=== PATIENT | female | born 1975 | race Caucasian/White ===

== ENCOUNTER 2017-06-11 15:01 | Emergency (ER) | payer SELFPAY ==
[~2017-06-11] VITALS: Ht 165.1 cm; Wt 60.0 kg
[~2017-06-11 15:01] MED LIST: ACETTAB3 PO; AMOXICILLIN500 MG PO; ANUSOL-HC25 MG RE; AUGMENTIN1 M1 OR; AUGMENTINES600 PO; AZITHROMYC200 MG/5 M PO; AZO-STANDARD95 MG PO; BACTRIM DS1 TAB PO; BENZONATATE200 MG PO; CEPHALEXIN500 MG PO; CIPRO500 MG OR; CIPROFLOXACN500 MG PO; CLEOCIN150 MG PO; DEPO-PROVER150 MG/ML IM; DOXYCYCL HYC100 MG PO; EXCEDRI1 OR; EXCEDRI2 OR; FIORICE1 PO; FIORICET PO; FLEXERIL OR; KEFLEX500 M1 PO; LEVAQUIN500 MG PO; LORTAB 10-325 M1 TAB PO; LORTAB 1010 MG PO; LORTAB 5 OR; LORTAB5 PO; MEDDOSEPAK PO; METHADONE10 M1 OR; MOTRIN600 MG OR; NAPROSYN500 MG PO; NO HOME MEDS; PENICILLN VK500 M1 OR; PERCOCET 5/325M1 TAB OR; PERCOCET 5/325M1 TAB PO; POT CHLORIDE20 ME3 OR; PRILOSEC OTC20 MG OR; PROAIR HFA IN; ROXICODONE15 MG PO; ULTRAM50 M1 PO; ULTRAM50 MG PO; ZITHROMAX500 MG PO; ZOFRAN ODT8 MG SL; ZOFRAN4 MG OR; phenergan RE
[2017-06-11 16:36] LABS: INFLUENZA A NONE DETECTED (NONE DETECT); INFLUENZA B NONE DETECTED (NONE DETECT)
[2017-06-11 16:38] LABS: HEMATOCRIT 34.5 % (37.0-47.0); HEMOGLOBIN 10.9 g/dl (12.0-16.0); IMMATURE GRANULOCYTES 0.2 % (0.0-1.0); MEAN CELL VOLUME 82.3 fL CALC (80.0-100.0); MEAN CORPUSCULAR HGB CONC 31.6 g/L CALC (32.0-36.0); NEUT# 3.49 thou/uL (2.00-7.15); RED BLOOD COUNT 4.19 mill/uL (4.20-5.60); RED CELL DISTRI WIDTH 14.2 % (11.5-15.5)
[2017-06-11 17:14] VITALS: BP 121/71
== END 2017-06-11 17:14 | disposition home or self-care (01) | DRG 866 ==
LOC: ED 15:01
PROVIDERS: Family Medicine
DX: B34.9 Viral infection, unspecified (principal); F17.210 Nicotine dependence, cigarettes, uncomplicated; R05 Cough; R09.81 Nasal congestion; M79.1 Myalgia; R06.2 Wheezing

== ENCOUNTER 2019-04-17 09:33 | Inpatient (IN) | payer SELFPAY ==
[~2019-04-17] VITALS: Ht 165.1 cm; Wt 50.0 kg
--- NOTE | 2019-04-17 09:45 | NUR ---
PATEINT TO ROOM VIA WHEELCHAIR AND PHYSICIAN NOTIFIED OF PATIENT STATUS
--- NOTE | 2019-04-17 09:50 | NUR ---
PT REPORTS JOINT SWELLING, FEVER, BODY ACHES, HEADACHES AND NAUSEA FOR THE PAST 4 DAYS. PT IS AN IV DRUG USER AND LAST USED DILAUDID 2 DAYS PRIOR TO RIGHT HAND. RECTAL TEMP COMPLETED AND IS 101.0. IV INITIATED AND LABS COLLECTED. MD AT BEDSIDE.
--- NOTE | 2019-04-17 10:00 | NUR ---
PT REPORT TO GUSTAVO QUEVEDO.
[2019-04-17 10:14] LABS: HEMATOCRIT 31.9 % (37.0-47.0); HEMOGLOBIN 10.6 g/dl (12.0-16.0); IMMATURE GRANULOCYTES 0.5 % (0.0-5.0); MEAN CELL VOLUME 83.3 fL CALC (80.0-100.0); MEAN CORPUSCULAR HGB 27.7 pG CALC (26.0-32.0); MEAN CORPUSCULAR HGB CONC 33.2 g/L CALC (32.0-36.0); NEUT# 5.53 thou/uL (2.00-7.15); RED BLOOD COUNT 3.83 mill/uL (4.20-5.60); RED CELL DISTRI WIDTH 14.1 % (11.5-15.5)
[2019-04-17 10:16] LABS: GFR > 60 ML/MIN (>=60 (CALC)); GFR FOR AFR.AMER. > 60 ML/MIN (>=60 (CALC))
[2019-04-17 10:32] LABS: ALBUMIN 2.8 g/dL (3.2-5.0); BILIRUBIN, TOTAL 0.7 mg/dL (0.0-1.4); BUN 16 mg/dL (7-17); BUN/CREATININE RATIO 26 (12-20 (CALC)); CHLORIDE 93 mmol/l (95-108); CREATININE 0.6 mg/dL (0.5-1.0); GFR > 60 ML/MIN (>=60 (CALC)); GFR FOR AFR.AMER. > 60 ML/MIN (>=60 (CALC)); LIPASE 16 u/l (23-300); POTASSIUM 3.4 mmol/l (3.5-5.1); SGOT/AST 40 u/l (14-36)
[2019-04-17 10:36] LABS: ANION GAP 10 (6-22 (CALC))
[2019-04-17 10:37] LABS: ALKALINE PHOSPHATASE 76 u/l (38-126); CARBON DIOXIDE 24 mmol/l (22-30); SODIUM 124 mmol/l (137-146)
--- NOTE | 2019-04-17 11:00 | NUR ---
PT STATES PAIN AND NAUSEA HAS DECREASED. AMBULATED TO RESTROOM WITH STEADY GAIT
[2019-04-17 11:21] LABS: URINE BILIRUBIN - DIPSTICK NEGATIVE (NEGATIVE); URINE BLOOD DIPSTICK MODERATE (NEGATIVE); URINE COLOR YELLOW; URINE GLUCOSE - DIPSTICK NEGATIVE (NEGATIVE); URINE KETONE NEGATIVE (NEGATIVE); URINE LEUK ESTERASE NEGATIVE (NEGATIVE); URINE NITRITE - DIPSTICK NEGATIVE (Negative); URINE PH 6.5 (4.5-8.0); URINE PROTEIN - DIPSTICK NEGATIVE (NEG-TRACE); URINE SPECIFIC GRAVITY <=1.005; URINE UROBILINOGEN - DIPSTICK 0.2 E.U./dL (0.2)
[2019-04-17 11:25] LABS: URINE RBC 0-2 RBC/hpf (0-5)
--- NOTE | 2019-04-17 12:00 | NUR ---
PT RESTING ON STRETCHER, IV PATENT WITH FLUIDS RUNNING
--- NOTE | 2019-04-17 14:52 | NUR ---
INFECTION CONTROL DR PEDERSON AT BEDSIDE
[2019-04-17 15:49] LABS: BARBITURATES NEGATIVE (NEGATIVE); COCAINE NEGATIVE (NEGATIVE); METHADONE NEGATIVE (NEGATIVE); TETRAHYDROCANNABIONOL NEGATIVE (NEGATIVE); TRICYLIC ANTIDEPRESSANTS NEGATIVE (NEGATIVE)
[2019-04-17 15:50] LABS: OXCYCODONE POSITIVE (NEGATIVE)
--- NOTE | 2019-04-17 15:59 | NUR ---
REPROT CALLED TO ICU - ALBERT CHEN ACCEPTED PT
--- NOTE | 2019-04-17 16:04 | NUR ---
Vancomycin consult Age: 43 yo Serum creatinine: 0.7 mg/dL Height: 65.0 Inches Weight (kg): 50 IBW (kg): 57.00 Dosing wt(kg): 50 Estimated Creatinine clearance (ml/min): 80.1 Vd (liters): 35.0 (factor used: 0.7 L/kg) Henry (hr-1): 0.071 Half life (hrs): 9.76 Vancomycin 750 mg q 12 hrs starting at 2000 with an expected Cpeak of 35 mcg/ml and an expected Ctrough of 17 mcg/ml. Trough on 04/19/19 at 0730.
--- NOTE | 2019-04-17 16:15 | NUR ---
Admission Note Report Given to: ALBERT RN Transported by: Wheelchair X Stretcher Transported with: X Nurse Transporter X Patent IV O2 X Supervisor [employer] Location: X ICU MS2 TRANSPORTED TO ICU WITH OUT INCIDENT
[2019-04-17 16:30] VITALS: BP 102/71
[2019-04-17 17:00] VITALS: BP 96/65
[2019-04-17 17:30] VITALS: BP 112/71
[2019-04-17 18:00] VITALS: BP 115/68
--- NOTE | 2019-04-17 18:30 | NUR ---
PT PROVIDED TYLENOL AND TRAMADOL FOR RELIEF OF HEADACHE PAIN AND FEVER OF 100.4. PT UP TO BSC WITHOUT DIFFICULTY. MEAL TRAY ARRIVES, PT HUNGRY. NO DISTRESS. DROPLET PRECAUTIONS ENFORCED.
[2019-04-17 19:30] VITALS: BP 90/50
--- NOTE | 2019-04-17 19:30 | NUR ---
eyes closed. does not open them. nad. indifferent to staff. cardiac cath lab manager shows sinus tach. #18 lac ns infusing @ 100cchr. refused po intake. voids per bsc. fall, droplet & contact precautions cont.
[2019-04-17 22:00] VITALS: BP 106/72
--- NOTE | 2019-04-17 22:50 | NUR ---
c/o "bones hurting & h/a." medicated as ordered
--- NOTE | 2019-04-17 23:50 | NUR ---
c/o "bones hurting & h/a." medicated as ordered.
[2019-04-18] VITALS (15 sets, daily range): BP systolic 90–117; BP diastolic 40–80
--- NOTE | 2019-04-18 02:00 | NUR ---
eyes closed. no distress. cardiac rehabilitation program director shows sinus rhythm hr 90
--- NOTE | 2019-04-18 03:50 | NUR ---
c/o "bones hurting & h/a." medicated as ordered.
--- NOTE | 2019-04-18 05:40 | NUR ---
lab here. blood drawn.
[2019-04-18 06:07] LABS: HEMATOCRIT 29.2 % (37.0-47.0); HEMOGLOBIN 9.7 g/dl (12.0-16.0); IMMATURE GRANULOCYTES 0.6 % (0.0-5.0); MEAN CELL VOLUME 83.9 fL CALC (80.0-100.0); MEAN CORPUSCULAR HGB 27.9 pG CALC (26.0-32.0); MEAN CORPUSCULAR HGB CONC 33.2 g/L CALC (32.0-36.0); NEUT# 5.36 thou/uL (2.00-7.15); RED BLOOD COUNT 3.48 mill/uL (4.20-5.60); RED CELL DISTRI WIDTH 14.3 % (11.5-15.5)
[2019-04-18 06:36] LABS: ALBUMIN 2.4 g/dL (3.2-5.0); ALKALINE PHOSPHATASE 60 u/l (38-126); BUN 13 mg/dL (7-17); BUN/CREATININE RATIO 28 (12-20 (CALC)); CARBON DIOXIDE 23 mmol/l (22-30); CREATININE 0.5 mg/dL (0.5-1.0); GFR > 60 ML/MIN (>=60 (CALC)); GFR FOR AFR.AMER. > 60 ML/MIN (>=60 (CALC)); POTASSIUM 3.6 mmol/l (3.5-5.1); SGOT/AST 24 u/l (14-36); TOTAL PROTEIN 5.3 g/dL (6.3-8.2)
[2019-04-18 06:45] LABS: ANION GAP 9 (6-22 (CALC)); BILIRUBIN, TOTAL 0.4 mg/dL (0.0-1.4); CHLORIDE 106 mmol/l (95-108); SODIUM 134 mmol/l (137-146)
--- NOTE | 2019-04-18 08:01 | NUR ---
REPORT RECEIVED FROM SCREW MACHINE ADJUSTER AUTOMATIC RN. PT ASSESSMENT COMPLETED. PT RECEIVED PRN MEDICATION FOR PAIN. EDUCATED PT ON FALL RISK STATUS, CALL LIGHT, AND DROPLET STATUS. WILL CONTINUE TO MONITOR. PLEASE SEE FLOW SHEET FOR FURTHER DETAILS.
--- NOTE | 2019-04-18 10:12 | NUR ---
NO DISTRESS NOTED. PT RECEIVED PRN MEDICATIONS FOR PAIN. WILL CONTINUE TO MONITOR. PLEASE SEE FLOW SHEET FOR FURTHER DETAILS.
--- NOTE | 2019-04-18 12:30 | NUR ---
DR. VERAS AT BEDSIDE TO ASSESS PT. PT COMPLAINED OF HEADACHE. DR. VERAS NOTIFIED. EXCEDRIN TO BE ORDERED. NO DISTRESS NOTED. WILL CONTINUE TO MONITOR.
--- NOTE | 2019-04-18 14:19 | NUR ---
PT RECEIVED PAIN MEDICATION FOR BACK PAIN. PT SLEEPING. NO DISTRESS NOTED. WILL CONTINUE TO MONITOR.
--- NOTE | 2019-04-18 15:56 | NUR ---
PT STATING PAIN IS GETTING WORSE AND SHE WOULD LIKE MORPHINE. CALLED AND NOTIFIED. PER NOT TO GIVE MORPHINE. NO NEW ORDERS RECEIVED. PT NOTIFIED. TYLENOL, HEAT PACKS AND WARM BLANKET GIVEN FOR PAIN. WILL CONTINUE TO MONITOR.
--- NOTE | 2019-04-18 17:16 | NUR ---
PT STATED HER IV HURTS. NO REDNESS OR INFILTRATION SEEN. ATTEMPTED NEW IV ACCESS X2 UNSUCCESSFULLY. PT REFUSED IV FLUIDS. WILL CONTINUE TO MONITOR.
--- NOTE | 2019-04-18 18:34 | NUR ---
PT NEURO ASSESSMENT STABLE THROUGHOUT SHIFT. AFEBRILE. ST-SR. PT ON ROOM AIR. PT AMBULATED TO THE BEDSIDE COMMODE. 1 BM THIS SHIFT. PT ON MENSES. PT RECEIVED PRN MEDICATIONS FOR PAIN. PT REFUSED IV FLUIDS. REPORT TO BE GIVEN TO HOME THEATER SPECIALIST NURSE. PLEASE SEE FLOW SHEET FOR FURTHER DETAILS \.
--- NOTE | 2019-04-18 19:30 | NUR ---
eyes closed. no distress. awakens easily. no c/o pain voiced. bargeman shows sinus rhythm hr 90. #18 lac saline lock. po fluids taken well. voids per bsc. menses cont. contact precautions cont.
--- NOTE | 2019-04-18 20:10 | NUR ---
to medsurg in accompanied by toy [employer] former supervisor for shower.
--- NOTE | 2019-04-18 20:45 | NUR ---
returned ro room. iv restarted per supervisor wet room. [facility] site d/c'd.
--- NOTE | 2019-04-18 21:00 | NUR ---
c/o pain. medicated as ordered.
--- NOTE | 2019-04-18 22:00 | NUR ---
eyes closed. no distress.
[2019-04-19] VITALS (8 sets, daily range): BP systolic 103–135; BP diastolic 50–78
--- NOTE | 2019-04-19 00:10 | NUR ---
up to bsc. nguyễn well. c/o pain. medicated as ordered.
--- NOTE | 2019-04-19 01:50 | NUR ---
c/o pain. medicated as ordered.
--- NOTE | 2019-04-19 04:00 | NUR ---
eyes closed. no distress. therapeutic strategy lead shows sinus tach hr 101.
--- NOTE | 2019-04-19 05:40 | NUR ---
c/o pain. medicated as ordered.
--- NOTE | 2019-04-19 08:14 | NUR ---
Vancomycin consult Weight: 50 Kilograms Current dose being given: 750 mg Current dosing interval: 12 hrs Current infusion time (hrs): 2 Trough level obtained: 7 mcg/ml Timing of trough - # of hrs before next dose: 0.5 Hrs New rate constant (olvin): 0.122 hr-1 Half-life: 5.68 Hours Vd from levels: 35.00 Liters (0.7 L/kg) CLvanco= 4.270 L/hr Vancomycin 1000 mg q 8 hrs starting at 1600 today. Infuse over 2 hrs Expected Cpeak: 40 mcg/mL Expected Ctrough: 19 mcg/mL Next trough on 04/20/19 at 1530
--- NOTE | 2019-04-19 08:41 | NUR ---
REPORT RECEIVED FROM CANCELLATION CLERK NURSE. PT ASSESSMENT COMPLETE. NO RESPIRATORY DISTRESS NOTED. PT SR-ST. PT RECEIVED PAIN MEDICATIN FOR PAIN. PT EDUCATED ON FALL RISK STATUS AND CALL LIGHT. PLEASE SEE FLOW SHEET FOR FURTHER DETAILS. WILL CONTINUE TO MONITOR.
--- NOTE | 2019-04-19 10:44 | NUR ---
PT RESTING WITH EYES CLOSED. PT RECEIEVED PRN PAIN MEDICAIONS FOR PAIN. PT GIVEN ICE CHIPS FOR PAIN. PT VOIDING VIA BEDSIDE COMMODE. WILL CONTINUE TO MONITOR.
--- NOTE | 2019-04-19 12:45 | NUR ---
PT GIVEN TYLENOL FOR HEADACHE. PT UP TO COMMODE. SMALL BM. PT UP IN BED EATING LUNCH. NO DISTRESS NOTED. WILL CONTINUE TO MONITOR.
--- NOTE | 2019-04-19 14:45 | NUR ---
PT RESTING WITH EYES CLOSED. NO DISTRESS NOTED. WILL CONTINUE TO MONITOR.
--- NOTE | 2019-04-19 16:45 | NUR ---
PT UP IN BED EATING DINNER. NO DISTRESS NOTED. PT RECEIVED PRN MEDECATIONS FOR PAIN. WILL CONTINUE TO MONITOR.
--- NOTE | 2019-04-19 19:05 | NUR ---
REPORT GIVEN TO NIGHT NURSE. PT RESTING IN BED WITH EYES CLOSED. SR-ST. ON ROOM AIR. 1 BM THIS SHIFT. PRN MEDICATIONS FOR PAIN. AFEBRILE. PLEASE SEE FLOW SHEET FOR FURTHER DETAILS.
--- NOTE | 2019-04-19 19:30 | NUR ---
awakens easily then immediately c/o pain. medicated as ordered. pt denies drug withdrawal. log buncher shows sinus tach hr 104. #22 rt wrist ns infusing @ 100cchr. po fluid taken well. voids per bsc. menses cont. contact & fall precautions cont.
--- NOTE | 2019-04-19 20:00 | NUR ---
pt refuses to kep bp cuff on.
--- NOTE | 2019-04-19 21:40 | NUR ---
c/o pain. medicated as ordered. c/o insomnia although pt sleeps often.
--- NOTE | 2019-04-19 22:00 | NUR ---
refuses to keep bp cuff on.
[2019-04-20] VITALS (7 sets, daily range): BP systolic 116–139; BP diastolic 68–102
--- NOTE | 2019-04-20 00:01 | NUR ---
eyes closed. no distress. manager monitoring shows sinus rhythm hr 82.
--- NOTE | 2019-04-20 02:00 | NUR ---
resting quietly. resps even & unlabored. no apparent distress.
--- NOTE | 2019-04-20 03:00 | NUR ---
up to [facility] freq. cardiac catheterization technologist off.
--- NOTE | 2019-04-20 05:00 | NUR ---
c/o pain. medicated as ordered. lab here. blood drawn. monitor car operator replaced.
[2019-04-20 05:24] LABS: HEMATOCRIT 30.9 % (37.0-47.0); HEMOGLOBIN 10.3 g/dl (12.0-16.0); IMMATURE GRANULOCYTES 1.5 % (0.0-5.0); MEAN CELL VOLUME 82.2 fL CALC (80.0-100.0); MEAN CORPUSCULAR HGB 27.4 pG CALC (26.0-32.0); MEAN CORPUSCULAR HGB CONC 33.3 g/L CALC (32.0-36.0); NEUT# 6.9 thou/uL (2.00-7.15); RED BLOOD COUNT 3.76 mill/uL (4.20-5.60); RED CELL DISTRI WIDTH 14.4 % (11.5-15.5)
[2019-04-20 05:58] LABS: ALBUMIN 2.2 g/dL (3.2-5.0); ALKALINE PHOSPHATASE 63 u/l (38-126); ANION GAP 8 (6-22 (CALC)); BILIRUBIN, TOTAL 0.5 mg/dL (0.0-1.4); BUN 8 mg/dL (7-17); BUN/CREATININE RATIO 15 (12-20 (CALC)); CARBON DIOXIDE 24 mmol/l (22-30); CHLORIDE 102 mmol/l (95-108); CREATININE 0.5 mg/dL (0.5-1.0); GFR > 60 ML/MIN (>=60 (CALC)); GFR FOR AFR.AMER. > 60 ML/MIN (>=60 (CALC)); POTASSIUM 3.1 mmol/l (3.5-5.1); SGOT/AST 17 u/l (14-36); SODIUM 132 mmol/l (137-146); TOTAL PROTEIN 5.2 g/dL (6.3-8.2)
--- NOTE | 2019-04-20 06:45 | NUR ---
RECIEVED REPORT FROM ANAHI WATSON. ASSUMED PT CARE.
--- NOTE | 2019-04-20 07:30 | NUR ---
PT RESTING IN BED, PT GOWN AND TELEMETRY ON THE FLOOR. PT STATED SHE WAS HOT. PT THEN STATED HER BONES HURT AND SHE HAS HEARING LOSS. PT PORFIRIO NEWMAN, SOB AT THIS TIME. PT REQUESTING PAIN MED, PT WAS MEDICATED AT 5AM. PT A&OX4, ABLE TO MAKE NEEDS KNOWN. RESPIRATIONS EVEN/UNLABORED, LS CLEAR. ABDOMEN SOFT, NON-TENDER. BSX4 ACTIVE, LBM 04-19-2019. PT CONTNIUES ON HER MENSES, PADS AND BRIEFS PROVIDED. CALL LIGHT IN REACH. WILL MONITOR.
--- NOTE | 2019-04-20 08:00 | NUR ---
DR. LOBO AT BEDSIDE FOR ASSESSMENT AND TO DISCUSS PLAN OF CARE. NEW ORDERS RECIEVED.
--- NOTE | 2019-04-20 08:32 | NUR ---
CALL PLACED TO [facility], SPOKE WITH GUSTAVO WARD TO INITIATE TRANSFER FOR [facility] PROCEDURE. FACE SHEET FAXED. [phone].
--- NOTE | 2019-04-20 08:45 | NUR ---
US HERE FOR ECHO AT BEDSIDE.
--- NOTE | 2019-04-20 10:00 | NUR ---
PT RESTING IN BED, CONTINUES WITH GOWN OFF. OFFERS NO COMPLAINTS AT THIS TIME. ED AT [facility] NOTIFIED, PT HAS BEEN ACCEPTED BY AT [facility], PENDING ROOM ASSIGNMENT.
--- NOTE | 2019-04-20 10:46 | NUR ---
called [facility] for the transfer center for an update. spoke to hernando and was given the accepting doctor divine. was told that she is only waiting on a bed assignment and she will call as soon as that comes available.
--- NOTE | 2019-04-20 11:11 | NUR ---
ABDIEL SHEEHAN ATTEMPTED TO GO SEE PT, PT RESTING IN BED WITH EYES CLOSED. CALL LIGHT IN REACH.
--- NOTE | 2019-04-20 11:15 | NUR ---
PT FOUND WITH IV TUBING ON THE FLOOR DRAINING THE CONTENTS OF NS TO FLOOR. PT STATED SHE DIDN'T KNOW HOW THAT HAPPENED. ATTEMPTED TO FLUSH THE SITE TO RH, UNABLE. NO S/S OF INFILTRATION OR INFECTION AT THIS TIME, LINE PULLED CATHETER INTACT.SHE CONTINUES TO REPORT [place] IN BOTH EARS, DR. LOBO AWARE. NEW IV STARTED T0 RAC.
--- NOTE | 2019-04-20 12:00 | NUR ---
PT RESTING IN BED, EYES CLOSED.
--- NOTE | 2019-04-20 13:30 | NUR ---
PT HAD FAMILY TO VISIT, THEN THE FAMILY DECIDED IT WAS TO EMOTIONAL AT THIS TIME AND WOULD COME BACK AT ANOTHER TIME
--- NOTE | 2019-04-20 14:00 | NUR ---
CALLED [facility], NO PRIVATE ROOM AVAILABLE YET. TRANSFER STILL PENDING.
--- NOTE | 2019-04-20 14:30 | NUR ---
PT MEDICATED ORDERED FOR PAIN AND TEMP ORDERED.
--- NOTE | 2019-04-20 16:00 | NUR ---
PT FAMILY ARRIVED AT BEDSIDE, ASKED IF PT COULD HAVE BC HEADACHE POWDER, TOLD NO. PT UNABLE TO HAVE AN OUTSIDE MEDICATIONS. PT MEDICATED AT 1420 FOR PAIN AND FEVER. CALL LIGHT IN REACH. WILL MONITOR.
--- NOTE | 2019-04-20 17:24 | NUR ---
DIETARY ON UNIT, DINNER BREE SET UP. CALL LIGHT IN REACH. WILL MONITOR.
--- NOTE | 2019-04-20 18:37 | NUR ---
[facility] CALLED, SPOKE WITH ED. PT WAS ASSIGNED TO [facility] ROOM 808. PT UPDATED ON TRANSFER.
--- NOTE | 2019-04-20 19:05 | NUR ---
[facility] CALLED TO NOTIFY OF TRANSFER FOR PATIENT. SPOKE TO ALEXANDRA. TIMING IS ABOUT 30 MINUTES OR SO PER REPORT.
--- NOTE | 2019-04-20 19:24 | NUR ---
MICH CHEN FROM ER CALLED AND REPORTED TO SEND [facility] TRANSPORT TO ER WHEN THEY GET HERE DUE TO A PATIENT NEEDS TO BE TRANSFERRED TO [facility].
--- NOTE | 2019-04-20 19:41 | NUR ---
PATIENT ALERT AND ORIENTED X4. ON ROOM AIR, NO SOB NOTED. TEMP 100.5. PT KNOWS SHE WILL BE TRANSFERRING TO [facility]. WROTE EVERYTHING DOWN SINCE SHE REPORTED SHE CANNOT HEAR EVEN IF I SPEAK TO HER EAR, I NOTED SHE CAN'T HEAR. PT AGREES ON POC. RAC 20 IV INTACT, NS AT 100ML/HR INFUSING. SR-ST ON TELEMETRY IN THE LOW 100'S. USES BSC WITHOUT DIFFICULTY. PUTS HER GLASSES ON TO READ THE NOTES WRITTEN. HEAD TO TOE NURSING ASSESSMENT PERFORMED. NO EDEMA, LS CLEAR, SKIN ONLY HAS SCATTERED BRUISING, BS ACTIVE AND SOFT. FOLLOWS ALL COMMANDS. SELF REPOSITIONS, CALL LIGHT WITHIN REACH.
--- NOTE | 2019-04-20 20:18 | NUR ---
PT REQUESTED PAIN MED FOR "HEAD AND KNEE PAIN", LORTAB GIVEN. SHE HAD REQUESTED A GATORADE, NOW REQUESTS ANOTHER ONE, PROVIDED WELL.
--- NOTE | 2019-04-20 20:29 | NUR ---
Discharge instructions given. Patient verbalizes understanding of same. Discharged in stable condition via Stretcher to *Other with staff. All belongings sent with pt. ALL BELONGINGS TAKEN WITH PATIENT. WALKED TO [facility] TO TAKE HER.
--- NOTE | 2019-04-20 20:39 | NUR ---
REPORT CALLED TO PRICILA AT [facility] CY 808, SBAR GIVEN.
== END 2019-04-20 20:29 | disposition short-term general hospital (02) | DRG 75 ==
LOC: ED 09:33 → ED-I 13:33 → ED 13:48 → ICU 13:49
PROVIDERS: Family Medicine; Internal Medicine Infectious Disease; Nurse Practitioner Family; ADMIT Internal Medicine; ATTEND Internal Medicine
PROC: 009U3ZX Drainage of Spinal Canal, Percutaneous Approach, Diagnostic (ICD-10-PCS; principal; 2019-04-17)
DX: A87.9 Viral meningitis, unspecified (principal); R78.81 Bacteremia; E87.1 Hypo-osmolality and hyponatremia; R01.1 Cardiac murmur, unspecified; F11.10 Opioid abuse, uncomplicated; F15.10 Other stimulant abuse, uncomplicated; R16.2 Hepatomegaly with splenomegaly, not elsewhere classified; F17.200 Nicotine dependence, unspecified, uncomplicated; D63.8 Anemia in other chronic diseases classified elsewhere; B95.62 Methicillin resistant Staphylococcus aureus infection as the cause of diseases classified elsewhere; Z77.21 Contact with and (suspected) exposure to potentially hazardous body fluids
CPT/HCPCS: J0133; J3370; Q3014; Q9967

== ENCOUNTER 2019-05-13 18:45 | Inpatient (IN) | payer SELFPAY ==
[~2019-05-13] VITALS: Ht 165.1 cm; Wt 58.1 kg
[2019-05-13 18:40] VITALS: BP 138/76
[2019-05-14 00:05] VITALS: BP 94/55
[2019-05-14 04:17] VITALS: BP 94/55
[2019-05-14 05:47] LABS: HEMATOCRIT 33.1 % (37.0-47.0); HEMOGLOBIN 10.4 g/dl (12.0-16.0); IMMATURE GRANULOCYTES 0.9 % (0.0-5.0); MEAN CORPUSCULAR HGB 27.7 pG CALC (26.0-32.0); MEAN CORPUSCULAR HGB CONC 31.4 g/L CALC (32.0-36.0); NEUT# 2.74 thou/uL (2.00-7.15); RED BLOOD COUNT 3.75 mill/uL (4.20-5.60); RED CELL DISTRI WIDTH 15.1 % (11.5-15.5)
[2019-05-14 05:48] LABS: MEAN CELL VOLUME 88.3 fL CALC (80.0-100.0)
[2019-05-14 06:11] LABS: ALKALINE PHOSPHATASE 34 u/l (38-126); BILIRUBIN, TOTAL 0.3 mg/dL (0.0-1.4); BUN 20 mg/dL (7-17); BUN/CREATININE RATIO 34 (12-20 (CALC)); CARBON DIOXIDE 25 mmol/l (22-30); CHLORIDE 104 mmol/l (95-108); CREATININE 0.6 mg/dL (0.5-1.0); GFR > 60 ML/MIN (>=60 (CALC)); GFR FOR AFR.AMER. > 60 ML/MIN (>=60 (CALC)); SODIUM 136 mmol/l (137-146)
[2019-05-14 06:22] LABS: ALBUMIN 3.3 g/dL (3.2-5.0); ANION GAP 12 (6-22 (CALC)); POTASSIUM 4.7 mmol/l (3.5-5.1); SGOT/AST 104 u/l (14-36); TOTAL PROTEIN 6.6 g/dL (6.3-8.2)
[2019-05-14 07:51] VITALS: BP 116/70
[2019-05-14] MEDS ORDERED: BUPRENORPHIN2 MG SL (12:29)
[2019-05-14] MEDS ORDERED: [UNRECOGNIZED DRUG - OTHER] PO (12:30)
[2019-05-14] MEDS ORDERED: TEFLARO600 MG IV (12:31)
[2019-05-14] MEDS ORDERED: DEXAMETHASON4 MG PO (12:32)
[2019-05-14] MEDS ORDERED: CUBICIN500 MG IV (12:32)
[2019-05-14] MEDS ORDERED: VISTARIL 50MG C50 MG PO (12:33)
[2019-05-14] MEDS ORDERED: MECLIZINE HCL25 MG PO (12:34)
[2019-05-14] MEDS ORDERED: MELATONIN3 MG PO (12:35)
[2019-05-14] MEDS ORDERED: ONDANSETRON HCL4 MG PO (12:36)
[2019-05-14] MEDS ORDERED: [UNRECOGNIZED DRUG - OTHER] PO (12:37)
[2019-05-14] MEDS ORDERED: TIMOLOL MAL0.5 % OU (12:38)
[2019-05-14 15:10] VITALS: BP 140/80
[2019-05-14 19:54] VITALS: BP 138/78
[2019-05-15 04:32] VITALS: BP 97/48
[2019-05-15 08:00] VITALS: BP 118/71
[2019-05-15 15:28] VITALS: BP 115/73
[2019-05-15 18:27] VITALS: BP 121/75
[2019-05-16 04:14] VITALS: BP 119/76
[2019-05-16 08:00] VITALS: BP 113/74
[2019-05-16 15:25] VITALS: BP 126/75
[2019-05-16 18:10] VITALS: BP 126/76
[2019-05-17 03:28] VITALS: BP 114/72
[2019-05-17 07:43] VITALS: BP 118/75
[2019-05-17 15:11] VITALS: BP 127/79
[2019-05-17 18:43] VITALS: BP 112/71
[2019-05-18 04:33] VITALS: BP 121/81
[2019-05-18 08:00] VITALS: BP 114/75
[2019-05-18 14:44] VITALS: BP 133/73
[2019-05-18 19:01] VITALS: BP 135/90
[2019-05-19 04:50] VITALS: BP 119/67
[2019-05-19 05:28] LABS: HEMOGLOBIN 10.5 g/dl (12.0-16.0); MEAN CELL VOLUME 88.2 fL CALC (80.0-100.0); MEAN CORPUSCULAR HGB 28.1 pG CALC (26.0-32.0); MEAN CORPUSCULAR HGB CONC 31.8 g/L CALC (32.0-36.0); NEUT# 3.99 thou/uL (2.00-7.15); RED BLOOD COUNT 3.74 mill/uL (4.20-5.60); RED CELL DISTRI WIDTH 15.2 % (11.5-15.5)
[2019-05-19 05:48] LABS: ANION GAP 10 (6-22 (CALC)); BUN 21 mg/dL (7-17); BUN/CREATININE RATIO 37 (12-20 (CALC)); CARBON DIOXIDE 27 mmol/l (22-30); CHLORIDE 104 mmol/l (95-108); CREATININE 0.6 mg/dL (0.5-1.0); GFR > 60 ML/MIN (>=60 (CALC)); GFR FOR AFR.AMER. > 60 ML/MIN (>=60 (CALC)); POTASSIUM 4.8 mmol/l (3.5-5.1); SODIUM 136 mmol/l (137-146)
[2019-05-19 05:55] LABS: ALBUMIN 3.7 g/dL (3.2-5.0); ALKALINE PHOSPHATASE 38 u/l (38-126); BILIRUBIN, TOTAL 0.2 mg/dL (0.0-1.4); C-REACTIVE PROTEIN < 0.5 mg/dL (0-0.9); TOTAL PROTEIN 7.2 g/dL (6.3-8.2)
[2019-05-19 06:07] LABS: CPK < 20 u/l (30-165); SGOT/AST 18 u/l (14-36)
[2019-05-19 08:00] VITALS: BP 117/69
[2019-05-19 16:11] VITALS: BP 132/77
[2019-05-19 19:46] VITALS: BP 130/71
[2019-05-20 04:00] VITALS: BP 106/67
[2019-05-20 07:30] VITALS: BP 119/74
[2019-05-20 15:05] VITALS: BP 115/71
[2019-05-20 18:29] VITALS: BP 118/63
[2019-05-21 03:53] VITALS: BP 129/69
[2019-05-21 07:34] VITALS: BP 120/71
[2019-05-21] MEDS ORDERED: DEXAMETHASON4 MG PO (10:48)
[2019-05-21] MEDS ORDERED: CUBICIN500 MG IV (10:48)
[2019-05-21] MEDS ORDERED: FIORICET PO (13:19)
[2019-05-21] MEDS ORDERED: MECLIZINE HCL25 MG PO (13:19)
[2019-05-21] MEDS ORDERED: BUPRENORPHIN2 MG SL (13:19)
== END 2019-05-21 13:36 | disposition home or self-care (01) | DRG 288 ==
LOC: MS2 18:45
PROVIDERS: Internal Medicine; Internal Medicine Infectious Disease; ADMIT Internal Medicine; ATTEND Internal Medicine
DX: I33.0 Acute and subacute infective endocarditis (principal); G03.9 Meningitis, unspecified; F17.200 Nicotine dependence, unspecified, uncomplicated; G43.909 Migraine, unspecified, not intractable, without status migrainosus; B95.62 Methicillin resistant Staphylococcus aureus infection as the cause of diseases classified elsewhere; H91.90 Unspecified hearing loss, unspecified ear; H40.10X0 Unspecified open-angle glaucoma, stage unspecified; R16.2 Hepatomegaly with splenomegaly, not elsewhere classified; H83.09 Labyrinthitis, unspecified ear; F15.10 Other stimulant abuse, uncomplicated; T36.8X5A Adverse effect of other systemic antibiotics, initial encounter
CPT/HCPCS: J0878

== ENCOUNTER 2020-07-11 | Emergency (ER) | payer OTHER ==
[~2020-07-11] MED LIST changes: +BUPRENORPHIN2 MG SL; +CUBICIN500 MG IV; +DEXAMETHASON4 MG PO; +MECLIZINE HCL25 MG PO; +MELATONIN3 MG PO; +ONDANSETRON HCL4 MG PO; +TEFLARO600 MG IV; +TIMOLOL MAL0.5 % OU; +VISTARIL 50MG C50 MG PO; +[UNRECOGNIZED DRUG - OTHER] PO; +[UNRECOGNIZED DRUG - OTHER] PO
[2020-07-11 14:00] LABS: URINE BILIRUBIN - DIPSTICK NEGATIVE (NEGATIVE); URINE BLOOD DIPSTICK NEGATIVE (NEGATIVE); URINE COLOR YELLOW; URINE GLUCOSE - DIPSTICK NEGATIVE (NEGATIVE); URINE KETONE 40 mg/dL (NEGATIVE); URINE LEUK ESTERASE NEGATIVE (NEGATIVE); URINE PH 5.5 (4.5-8.0); URINE PROTEIN - DIPSTICK 100 mg/dL (NEG-TRACE); URINE SPECIFIC GRAVITY >=1.030; URINE UROBILINOGEN - DIPSTICK 0.2 E.U./dL (0.2)
[2020-07-11 14:01] LABS: URINE NITRITE - DIPSTICK NEGATIVE (Negative)
[2020-07-11 14:02] LABS: HCG SERUM/URINE (NEG/POS) NEGATIVE (NEGATIVE)
[2020-07-11 14:08] LABS: URINE SQUAMOUS EPITHELIAL CELL FEW EPI/hpf (0-FEW)
[2020-07-11 14:32] LABS: IMMATURE GRANULOCYTES 0.4 % (0.0-5.0); MEAN CELL VOLUME 88.8 fL CALC (80.0-100.0); MEAN CORPUSCULAR HGB 27.9 pG CALC (26.0-32.0); MEAN CORPUSCULAR HGB CONC 31.4 g/dL CAL (32.0-36.0); NEUT# 7.41 thou/uL (2.00-7.15); RED BLOOD COUNT 3.94 mill/uL (4.20-5.60); RED CELL DISTRI WIDTH 14.1 % (11.5-15.5)
[2020-07-11 14:45] LABS: ALKALINE PHOSPHATASE 43 u/l (38-126); BILIRUBIN, TOTAL 0.6 mg/dL (0.0-1.4); BUN 16 mg/dL (7-17); BUN/CREATININE RATIO 30 (12-20 (CALC)); CHLORIDE 104 mmol/l (95-108); CREATININE 0.6 mg/dL (0.5-1.0); GFR > 60 ML/MIN (>=60 (CALC)); GFR FOR AFR.AMER. > 60 ML/MIN (>=60 (CALC)); LIPASE 18 u/l (23-300); POTASSIUM 4.1 mmol/l (3.5-5.1); SGOT/AST 19 u/l (14-36); SODIUM 135 mmol/l (137-146); TOTAL PROTEIN 6.8 g/dL (6.3-8.2)
[2020-07-11 14:50] LABS: ALBUMIN 3.5 g/dL (3.2-5.0); ANION GAP 11 (6-22 (CALC)); CARBON DIOXIDE 24 mmol/l (22-30)
[2020-07-11] MEDS ORDERED: ZPAK PO (15:46)
[2020-07-11] MEDS ORDERED: AMOX/K CLAV875 M1 PO (15:46)
[2020-07-12] MEDS ORDERED: ZPAK PO (11:54)
[2020-07-12] MEDS ORDERED: AMOX/K CLAV875 M1 PO ×2 (11:54→11:55)
== END 2020-07-11 16:10 | disposition home or self-care (01) ==
PROVIDERS: Family Medicine
DX: J18.9 Pneumonia, unspecified organism (principal); H91.90 Unspecified hearing loss, unspecified ear; Z86.73 Personal history of transient ischemic attack (TIA), and cerebral infarction without residual deficits; Z20.822 Contact with and (suspected) exposure to COVID-19
CPT/HCPCS: Q9967

== ENCOUNTER 2020-07-28 06:36 | Emergency (ER) | payer OTHER ==
[~2020-07-28] VITALS: Ht 165.1 cm; Wt 54.0 kg
[~2020-07-28 06:36] MED LIST changes: +AMOX/K CLAV875 M1 PO; +ZPAK PO
[2020-07-28] MEDS ORDERED: SUBOXONE1 MI1 SL ×2 (07:05→07:18)
[2020-07-28] MEDS ORDERED: [UNRECOGNIZED DRUG - OTHER] (07:06)
[2020-07-28] MEDS ORDERED: SCOPOLAMIN1 MG/3 DAY (07:07)
[2020-07-28] MEDS ORDERED: BUPROPION HCL100 M1 PO (07:18)
[2020-07-28] MEDS ORDERED: FAMOTIDINE20 M1 PO (07:18)
[2020-07-28 07:49] LABS: HEMATOCRIT 32.1 % (37.0-47.0); HEMOGLOBIN 9.9 g/dl (12.0-16.0); IMMATURE GRANULOCYTES 0.4 % (0.0-5.0); MEAN CELL VOLUME 86.3 fL CALC (80.0-100.0); MEAN CORPUSCULAR HGB 26.6 pG CALC (26.0-32.0); MEAN CORPUSCULAR HGB CONC 30.8 g/dL CAL (32.0-36.0); NEUT# 5.73 thou/uL (2.00-7.15); RED BLOOD COUNT 3.72 mill/uL (4.20-5.60); RED CELL DISTRI WIDTH 13.2 % (11.5-15.5)
[2020-07-28 08:08] LABS: ALBUMIN 3.6 g/dL (3.2-5.0); ALKALINE PHOSPHATASE 38 u/l (38-126); ANION GAP 11 (6-22 (CALC)); BILIRUBIN, TOTAL 0.5 mg/dL (0.0-1.4); BUN 19 mg/dL (7-17); BUN/CREATININE RATIO 31 (12-20 (CALC)); CHLORIDE 98 mmol/l (95-108); CREATININE 0.6 mg/dL (0.5-1.0); GFR > 60 ML/MIN (>=60 (CALC)); GFR FOR AFR.AMER. > 60 ML/MIN (>=60 (CALC)); LIPASE 21 u/l (23-300); POTASSIUM 3.7 mmol/l (3.5-5.1); SGOT/AST 15 u/l (14-36); SODIUM 136 mmol/l (137-146)
[2020-07-28 08:11] LABS: CARBON DIOXIDE 31 mmol/l (22-30)
[2020-07-28 08:19] LABS: URINE BLOOD DIPSTICK NEGATIVE (NEGATIVE); URINE COLOR YELLOW; URINE GLUCOSE - DIPSTICK NEGATIVE (NEGATIVE); URINE KETONE 15 mg/dL (NEGATIVE); URINE LEUK ESTERASE NEGATIVE (NEGATIVE); URINE PROTEIN - DIPSTICK TRACE mg/dL (NEG-TRACE); URINE SPECIFIC GRAVITY 1.025; URINE UROBILINOGEN - DIPSTICK 0.2 E.U./dL (0.2)
[2020-07-28 08:21] LABS: URINE BILIRUBIN - DIPSTICK SMALL (NEGATIVE)
[2020-07-28 08:22] LABS: URINE NITRITE - DIPSTICK NEGATIVE (Negative)
[2020-07-28 11:01] VITALS: BP 125/69
== END 2020-07-28 11:02 | disposition short-term general hospital (02) ==
LOC: ED 06:36
DX: J18.9 Pneumonia, unspecified organism (principal); R91.8 Other nonspecific abnormal finding of lung field; H91.90 Unspecified hearing loss, unspecified ear; Z86.14 Personal history of Methicillin resistant Staphylococcus aureus infection; Z20.822 Contact with and (suspected) exposure to COVID-19
CPT/HCPCS: Q9967

== ENCOUNTER 2021-03-12 17:45 | Emergency (ER) | payer OTHER ==
[~2021-03-12] VITALS: Ht 165.1 cm; Wt 57.0 kg
[~2021-03-12 17:45] MED LIST changes: +BUPROPION HCL100 M1 PO; +FAMOTIDINE20 M1 PO; +SCOPOLAMIN1 MG/3 DAY; +SUBOXONE1 MI1 SL; +[UNRECOGNIZED DRUG - OTHER]
[2021-03-12 19:17] LABS: HEMATOCRIT 38.6 % (37.0-47.0); HEMOGLOBIN 11.8 g/dl (12.0-16.0); IMMATURE GRANULOCYTES 0.1 % (0.0-5.0); MEAN CELL VOLUME 86.9 fL CALC (80.0-100.0); MEAN CORPUSCULAR HGB 26.6 pG CALC (26.0-32.0); MEAN CORPUSCULAR HGB CONC 30.6 g/dL CAL (32.0-36.0); NEUT# 5.35 thou/uL (2.00-7.15); RED BLOOD COUNT 4.44 mill/uL (4.20-5.60); RED CELL DISTRI WIDTH 14.3 % (11.5-15.5)
[2021-03-12 19:38] LABS: ALBUMIN 3.5 g/dL (3.2-5.0); ALKALINE PHOSPHATASE 40 u/l (38-126); ANION GAP 9 (6-22 (CALC)); BILIRUBIN, TOTAL 0.4 mg/dL (0.0-1.4); BUN 26 mg/dL (7-17); BUN/CREATININE RATIO 38 (12-20 (CALC)); CARBON DIOXIDE 29 mmol/l (22-30); CHLORIDE 106 mmol/l (95-108); CREATININE 0.7 mg/dL (0.5-1.0); GFR > 60 ML/MIN (>=60 (CALC)); GFR FOR AFR.AMER. > 60 ML/MIN (>=60 (CALC)); POTASSIUM 3.9 mmol/l (3.5-5.1); SGOT/AST 24 u/l (14-36); SODIUM 140 mmol/l (137-146); TOTAL PROTEIN 7.2 g/dL (6.3-8.2)
[2021-03-12] MEDS ORDERED: PHENERGAN25 MG RE (21:02)
[2021-03-12] MEDS ORDERED: ZITHROMAX250 MG PO (21:11)
[2021-03-12] MEDS ORDERED: Levaquin PO (21:33)
[2021-03-12 22:09] VITALS: BP 109/58
== END 2021-03-12 22:09 | disposition home or self-care (01) ==
LOC: ED 17:45
PROVIDERS: Emergency Medicine
DX: J18.9 Pneumonia, unspecified organism (principal); L50.0 Allergic urticaria; T36.3X5A Adverse effect of macrolides, initial encounter; Z79.899 Other long term (current) drug therapy; Z20.822 Contact with and (suspected) exposure to COVID-19
CPT/HCPCS: Q9967

== ENCOUNTER 2022-01-22 08:10 | Emergency (ER) | payer OTHER ==
[2022-01-22] VITALS (8 sets, daily range): BP systolic 118–143; BP diastolic 76–109
[~2022-01-22] VITALS: Ht 165.1 cm; Wt 57.5 kg
[~2022-01-22 08:10] MED LIST changes: +Levaquin PO; +PHENERGAN25 MG RE; +ZITHROMAX250 MG PO
[2022-01-22 09:00] LABS: URINE BILIRUBIN - DIPSTICK NEGATIVE (NEGATIVE); URINE BLOOD DIPSTICK NEGATIVE (NEGATIVE); URINE COLOR YELLOW; URINE GLUCOSE - DIPSTICK NEGATIVE (NEGATIVE); URINE KETONE 15 mg/dL (NEGATIVE); URINE LEUK ESTERASE TRACE (NEGATIVE); URINE PROTEIN - DIPSTICK NEGATIVE (NEG-TRACE); URINE SPECIFIC GRAVITY <=1.005; URINE UROBILINOGEN - DIPSTICK 0.2 E.U./dL (0.2)
[2022-01-22 09:01] LABS: URINE NITRITE - DIPSTICK NEGATIVE (Negative)
[2022-01-22 09:05] LABS: HEMATOCRIT 39.2 % (37.0-47.0); HEMOGLOBIN 11.9 g/dl (12.0-16.0); IMMATURE GRANULOCYTES 0.1 % (0.0-5.0); MEAN CELL VOLUME 82.7 fL CALC (80.0-100.0); MEAN CORPUSCULAR HGB 25.1 pG CALC (26.0-32.0); MEAN CORPUSCULAR HGB CONC 30.4 g/dL CAL (32.0-36.0); NEUT# 6.87 thou/uL (2.00-7.15); RED BLOOD COUNT 4.74 mill/uL (4.20-5.60); RED CELL DISTRI WIDTH 14.3 % (11.5-15.5)
[2022-01-22 09:24] LABS: ALBUMIN 3.9 g/dL (3.2-5.0); ALKALINE PHOSPHATASE 50 u/l (38-126); BUN 15 mg/dL (7-17); BUN/CREATININE RATIO 23 (12-20 (CALC)); CHLORIDE 110 mmol/l (95-108); CREATININE 0.7 mg/dL (0.5-1.0); GFR FOR AFR.AMER. > 60 ML/MIN (>=60 (CALC)); GFR OTHER RACES > 60 ML/MIN (>=60 (CALC)); LIPASE 44 u/l (23-300); POTASSIUM 3.7 mmol/l (3.5-5.1); SGOT/AST 20 u/l (14-36); SODIUM 143 mmol/l (137-146); TOTAL PROTEIN 7.6 g/dL (6.3-8.2)
[2022-01-22 09:25] LABS: ANION GAP 14 (6-22 (CALC)); BILIRUBIN, TOTAL 0.2 mg/dL (0.0-1.4); CARBON DIOXIDE 23 mmol/l (22-30)
[2022-01-22] MEDS ORDERED: LEVAQUIN750 M1 PO (10:02)
[2022-01-22] MEDS ORDERED: ZOFRAN4 MG/TAB PO (10:02)
== END 2022-01-22 11:39 | disposition home or self-care (01) ==
LOC: ED 08:10
PROVIDERS: Family Medicine
DX: R50.9 Fever, unspecified (principal); F19.10 Other psychoactive substance abuse, uncomplicated; Z20.822 Contact with and (suspected) exposure to COVID-19